=== PATIENT | male | born 1945 | race Caucasian/White ===

== ENCOUNTER → 2019-01-03 | Outpatient (CLI) | payer MEDICARE, BC ==
[~2019-01-03] MED LIST: FLOMAX 0.40.4 MG/CAP PO; NO HOME MEDICATIONS; NORCO 325 MG-51 TAB PO; ZOFRAN 4MG T4 MG/TAB PO
== END ==
LOC: MHCPAIN 13:11
DX: G89.29 Other chronic pain (principal); M47.817 Spondylosis without myelopathy or radiculopathy, lumbosacral region; M54.16 Radiculopathy, lumbar region; M53.3 Sacrococcygeal disorders, not elsewhere classified
CPT/HCPCS: G0463

== ENCOUNTER → 2019-01-08 | Outpatient (CLI) | payer MEDICARE, BC | LOC: MHCPAIN 10:51 | DX: M47.817 Spondylosis without myelopathy or radiculopathy, lumbosacral region (principal); M54.16 Radiculopathy, lumbar region | CPT/HCPCS: J1100; Q9967 ==

== ENCOUNTER → 2019-01-23 | Outpatient (CLI) | payer MEDICARE, BC | LOC: MHCPAIN 13:06 | DX: G89.29 Other chronic pain (principal); M47.817 Spondylosis without myelopathy or radiculopathy, lumbosacral region; M54.16 Radiculopathy, lumbar region; M53.3 Sacrococcygeal disorders, not elsewhere classified | CPT/HCPCS: G0463 ==

== ENCOUNTER 2019-01-24 09:15 | Outpatient (RCR) | payer MEDICARE, BC | END 2019-02-05 | LOC: WSPT | DX: M51.36 Other intervertebral disc degeneration, lumbar region (principal) | CPT/HCPCS: G0283-GP ==

== ENCOUNTER 2019-02-20 10:15 | Outpatient (RCR) | payer MEDICARE, BC | END 2019-02-23 10:15 | disposition home or self-care (01) | LOC: WSPT 10:15 | DX: G89.29 Other chronic pain (principal); M25.512 Pain in left shoulder; M54.2 Cervicalgia ==

== ENCOUNTER → 2019-04-24 | Outpatient (CLI) | payer MEDICARE, BC | LOC: MHCPAIN 13:09 | DX: G89.29 Other chronic pain (principal); M47.817 Spondylosis without myelopathy or radiculopathy, lumbosacral region; M54.16 Radiculopathy, lumbar region; M53.3 Sacrococcygeal disorders, not elsewhere classified | CPT/HCPCS: G0463 ==

== ENCOUNTER 2022-02-07 09:37 | Emergency (ER) | payer MEDICARE, BC ==
[~2022-02-07] VITALS: Ht 167.6 cm; Wt 70.5 kg
[2022-02-07 09:59] VITALS: TEMP 97.7
[2022-02-07 14:02] VITALS: BP 132/81; PULSE 80
== END 2022-02-07 14:03 | disposition home or self-care (01) ==
LOC: COL.ER 09:37
DX: S83.92XA Sprain of unspecified site of left knee, initial encounter (principal); X50.1XXA Overexertion from prolonged static or awkward postures, initial encounter